=== PATIENT | female | born 1955 | race Caucasian/White ===

== ENCOUNTER → 2017-02-24 | Day surgery (SDC) | payer OTHER ==
[2017-02-19 12:24] VITALS: BMI 45.0
[~2017-02-24] VITALS: Ht 142.2 cm; Wt 92.3 kg
[~2017-02-24] MED LIST: CITA10TA4 PO; CITA20TA4 PO; DLN100 PO; LIDOCAINE HCL 2% 2 ML VIAL (20MG/ML) ONE; NAPR220T PO; PHENOBARBITAL PO; PROPOFOL IV EMULSION 10 MG/ML 20 ML VIAL IV ONE; VNTHFA/IN INH; ZNTT/150 PO
[2017-02-24 09:00] VITALS: TEMP 36.3
[2017-02-24 09:06] VITALS: Ht 142.2 cm; Wt 92.3 kg
--- NOTE | 2017-02-24 10:34 | GI REPORT ---
Procedure Date: 02/24/2017 9:27 AM Procedure: Colonoscopy Indications: High risk colon cancer surveillance: Personal history of colonic polyps Medicines: See the Anesthesia note for documentation of the administered medications Complications: No immediate complications. Estimated Blood Loss: Estimated blood loss: none. Procedure: Pre-Anesthesia Assessment: - ASA Grade Assessment: II - A patient with mild systemic disease. After I obtained informed consent, the scope was passed under direct vision. Throughout the procedure, the patient's blood pressure, pulse, and oxygen saturations were monitored continuously. The scope was introduced through the anus and advanced to the terminal ileum. The colonoscopy was performed without difficulty. The patient tolerated the procedure well. The quality of the bowel preparation was good. Findings: The perianal and digital rectal examinations were normal. Two sessile polyps were found at the hepatic flexure. The polyps were 6 to 7 mm in size. These polyps were removed with a saline injection-lift technique using a hot snare. Resection and retrieval were complete. Two sessile polyps were found at the hepatic flexure. The polyps were 1 to 2 mm in size. These polyps were removed with a cold snare. Resection and retrieval were complete. A 8 mm polyp was found in the transverse colon. The polyp was sessile. The polyp was removed with a saline injection-lift technique using a hot snare. Resection and retrieval were complete. Two sessile polyps were found in the sigmoid colon. The polyps were 3 to 4 mm in size. These polyps were removed with a cold snare. Resection and retrieval were complete. Two sessile polyps were found in the sigmoid colon. The polyps were 4 to 5 mm in size. These polyps were removed with a hot snare. Resection and retrieval were complete. A 8 mm polyp was found in the sigmoid colon. The polyp was sessile. The polyp was removed with a saline injection-lift technique using a hot snare. Resection and retrieval were complete. For hemostasis, one hemostatic clip was successfully placed. Multiple small and large-mouthed diverticula were found in the sigmoid colon and in the descending colon. A 6 mm polyp was found in the descending colon. The polyp was sessile. The polyp was removed with a hot snare. Resection and retrieval were complete. Otherwise normal exam. Impression: - Two 6 to 7 mm polyps at the hepatic flexure, removed using injection-lift and a hot snare. Resected and retrieved. - Two 1 to 2 mm polyps at the hepatic flexure, removed with a cold snare. Resected and retrieved. - One 8 mm polyp in the transverse colon, removed using injection-lift and a hot snare. Resected and retrieved. - Two 3 to 4 mm polyps in the sigmoid colon, removed with a cold snare. Resected and retrieved. - Two 4 to 5 mm polyps in the sigmoid colon, removed with a hot snare. Resected and retrieved. - One 8 mm polyp in the sigmoid colon, removed using injection-lift and a hot snare. Resected and retrieved. Clip was placed. - Diverticulosis in the sigmoid colon and in the descending colon. - One 6 mm polyp in the descending colon, removed with a hot snare. Resected and retrieved. Recommendation: Repeat exam in 1 year. Hold NSAIDs x 1 week. - Discharge patient to home. Jaelyn Farrar M.D. Jaelyn Farrar MD 02/24/2017 10:34:26 AM This report has been signed electronically. Note Initiated On: 02/24/2017 9:27 AM I attest to the content of the Intraoperative Record and orders documented therein, exceptions below
--- NOTE | 2017-02-24 10:35 | Endo History and Physical ---
History & Physical Date of Service: February 24, 2017. Chief Complaint: SCREENING FOR COLON CANCER Referring Physician: DR TRINIDAD History of Present Illness screening CRC Past Surgical History Hx Cardiac Surgery: No Hx Internal Defibrillator: No Hx Pacemaker: No Hx Abdominal Surgery: Yes (TUBAL LIGATION) Hx of Implantable Prosthesis: No Hx Post-Op Nausea and Vomiting: No Hx Cancer Surgery: No Hx Thoracic Surgery: No Hx Orthopedic: Yes (LT TKA) Hx Urinary Tract Surgery: No Family History None Social History Smoking Status: Never Smoker Hx Substance Use: No Hx Alcohol Use: No Allergies Coded Allergies: Diazepam (Verified Adverse Reaction, Unknown, "MADE ME SLEEP ALL THE TIME ", 02/19/17) Current Medications Reported Home Medications Medications Dose Route/Sig Max Daily Dose Days Date Category Dose Instructions Ventolin Hfa (Albuterol) 200 Puffs/25992 Mcg Aers 2-4 Puffs INH Q6H PRN 02/19/17 Reported Aleve (Naproxen Sodium) 220 Mg Tab 220 Mg PO DAILY PRN 02/19/17 Reported Zantac (Ranitidine HCl) 150 Mg Tab 0.5 Tab PO BID 02/19/17 Reported Zantac (Ranitidine HCl) 150 Mg Tab 150 Mg PO HS 02/19/17 Reported Citalopram Hydrobromide 10 Mg Tab 1 Tab PO HS 02/19/17 Reported Citalopram Hydrobromide 20 Mg Tab 0.5 Tab PO BID 02/19/17 Reported [Phenobarbital] 97.2 Mg PO BID 02/19/17 Reported Dilantin (Phenytoin Sodium) 100 Mg Cap 2 Cap PO HS 02/19/17 Reported Dilantin (Phenytoin Sodium) 100 Mg Cap 1 Cap PO BID 02/19/17 Reported MORNING AND AFTERNOON Vital Signs Weight (Kilograms): 92.27 Height (Feet): 4 Height (Inches): 8 Date Time Temp Pulse Resp B/P Pulse Ox O2 Delivery O2 Flow Rate FiO2 02/24/17 10:24 58 18 134/74 100 Room Air 02/24/17 09:00 36.3 61 18 131/58 99 Room Air Physical Exam General Appearance: no apparent distress Respiratory/Chest: Respiratory effort: no dyspnea Auscultation: breath sounds normal Cardiovascular: Heart Auscultation: RRR Abdomen: Inspection & Palpation: soft Assessment and Plan Screening CRC - cscopy
--- NOTE | 2017-02-24 10:36 | Discharge Instructions ---
Endoscopy Patient Instructions Date / Procedure(s) Performed February 24, 2017. Colonoscopy Allergy Information Coded Allergies: Diazepam (Verified Adverse Reaction, Unknown, "MADE ME SLEEP ALL THE TIME ", 02/19/17) Discharge Date / Findings February 24, 2017. Multiple polyps, diverticulosis Medication Instructions Hold all anti- inflammatories x 1 week. Provider Instructions Activity Restrictions - No exercising or heavy lifting for 24 hours. - Do not drink alcohol the day of the procedure. - Do not drive a car or operate machinery until the day after the procedure. - Do not make any important decisions or sign important papers in 24 hours after the procedure. Following Day: - Return to full activity which may include returning to work/school. Diet Start your diet with liquids and light foods (jello, soup, juice, toast). Then eat your usual diet if not nauseated. Treatment For Common After Affects For mild abdominal pain, bloating, or excessive gas: - Rest - Eat lightly - Lie on right side Follow-Up Information Follow-up with DR TRINIDAD as scheduled Anesthesia Information What You Should Know You have had a procedure that required some medicine to reduce anxiety and discomfort. This treatment is called moderate sedation. After receiving the treatment, you may be sleepy, but you will be able to breathe on your own. The effects of the treatment may last for several hours. Follow these instructions along with Activity/Diet recommendations noted above: * Do NOT do anything where dizziness or clumsiness would be dangerous. * Rest quietly at home today, then you can be up and about tomorrow. * Have a responsible person stay with you the rest of today. * You may have had an I.V. today. If so, you may take the dressing off later today. Recommendations Call your doctor if: * Trouble breathing * Continuous vomiting for more than 24 hours * Temperature above 101 degrees * Severe abdominal pain or bloating * Pain not relieved by pain medicine ordered * There is increased drainage or redness from any incision * A large amount of rectal bleeding greater than 2-3 tablespoons. (If you had a polyp/s removed or have hemorrhoids, a small amount of blood - from the rectum is to be expected.) * You have any unanswered questions or concerns. IN THE EVENT OF A SERIOUS EMERGENCY, GO TO THE NEAREST EMERGENCY ROOM Your discharge instructions were prepared by provider Jaelyn Oliveros. Patient Instructions Signature Page Iram Tavarez Patient (or Guardian) Signature/Date: I have read and understand the instructions given to me by my caregivers. Caregiver/RN/Doctor Signature/Date: The above-named patient and/or guardian has received patient instructions on this date. + Original Patient Signature Page (only) stays with chart. Please make copy for patient.
--- NOTE | 2017-02-24 10:42 | Anesthesiology Progress Note ---
Anesthesia Post Op Note Date & Time February 24, 2017 at 10:42 Vital Signs Pain Intensity: 0 Vital Signs Past 12 Hours Date Time Temp Pulse Resp B/P Pulse Ox O2 Delivery O2 Flow Rate FiO2 02/24/17 10:40 73 20 132/74 97 Room Air 02/24/17 10:24 58 18 134/74 100 Room Air 02/24/17 09:00 36.3 61 18 131/58 99 Room Air Notes Mental Status: alert / awake / arousable, participated in evaluation Pt Amnestic to Procedure: Yes Nausea / Vomiting: adequately controlled Pain: adequately controlled Airway Patency, RR, SpO2: stable & adequate BP & HR: stable & adequate Hydration State: stable & adequate Anesthetic Complications: no major complications apparent
[2017-02-24 10:55] VITALS: BP 127/61; PULSE 69; O2SAT 97
== END | disposition home or self-care (01) ==
LOC: C.GI 08:23
PROVIDERS: ATTEND Internal Medicine Gastroenterology
DX: Z12.11 Encounter for screening for malignant neoplasm of colon (principal); D12.3 Benign neoplasm of transverse colon; D12.5 Benign neoplasm of sigmoid colon; D12.2 Benign neoplasm of ascending colon; D12.4 Benign neoplasm of descending colon; K57.30 Diverticulosis of large intestine without perforation or abscess without bleeding; Z86.010 Personal history of colon polyps; Z79.899 Other long term (current) drug therapy

== ENCOUNTER → 2018-02-26 | Day surgery (SDC) | payer OTHER ==
[2018-02-19 10:00] VITALS: Ht 142.2 cm; Wt 95.5 kg
[~2018-02-26] VITALS: Ht 142.2 cm; Wt 95.5 kg
[~2018-02-26] MED LIST changes: -CITA10TA4 PO; -CITA20TA4 PO; +CITA40TA12 PO; +KETO0.0216 OP; +MULT-506 PO; +NAPR-1264 PO; -NAPR220T PO; +NEOM1OIN15; -PROPOFOL IV EMULSION 10 MG/ML 20 ML VIAL IV ONE; +PROPOFOL IV EMULSION 10 MG/ML 20 ML VIAL ONE; +RANI150T85 PO; +SODIUM CHLORIDE 0.9% 500ML 500 ML IV ONE; -ZNTT/150 PO
--- NOTE | 2018-02-26 08:45 | Endo History and Physical ---
History & Physical Date of Service: February 26, 2018. Chief Complaint: ADENOMATOUS POLYPS OF COLON Referring Physician: DR TRINIDAD History of Present Illness Hx of colon polyps Past Surgical History Hx Cardiac Surgery: No Hx Internal Defibrillator: No Hx Pacemaker: No Hx Abdominal Surgery: Yes (TUBAL LIGATION) Hx of Implantable Prosthesis: No Hx Post-Op Nausea and Vomiting: No Hx Cancer Surgery: No Hx Thoracic Surgery: No Hx Orthopedic: Yes (LT TKA) Hx Urinary Tract Surgery: No Social History Smoking Status: Never Smoker Hx Substance Use: No Hx Alcohol Use: No Allergies Coded Allergies: Diazepam (Verified Adverse Reaction, Unknown, "MADE ME SLEEP ALL THE TIME ", 02/26/18) Current Medications Reported Home Medications Medications Dose Route/Sig Max Daily Dose Days Date Category Dose Instructions Zaditor 0.025% Oph (Ketotifen Fumarate (Ophth)) 0.025 % Jorge Alberto 1 Drop OP Q12H PRN 02/19/18 Reported Neosporin Oph (Neomycin/Polymyxin/Bacitracin) Oint DIRECTED 02/19/18 Reported Celexa (Citalopram Hydrobromide) 40 Mg Tab 1 Tab PO HS 30 02/19/18 Reported Multivitamin (Multivitamins) Tab 1 Tab PO DAILY 02/19/18 Reported Ventolin Hfa (Albuterol) 200 Puffs/15192 Mcg Aers 2-4 Puffs INH Q6H PRN 02/19/17 Reported Aleve (Naproxen Sodium) 220 Mg Tab 220 Mg PO DAILY PRN 02/19/17 Reported Zantac (Ranitidine HCl) 150 Mg Tab 1 Tab PO BID 02/19/17 Reported [Phenobarbital] 97.2 Mg PO BID 02/19/17 Reported Dilantin (Phenytoin Sodium) 100 Mg Cap 1 Cap PO TID 02/19/17 Reported MORNING AND AFTERNOON Vital Signs Weight (Kilograms): 95.45 Height (Feet): 4 Height (Inches): 8 Date Time Temp Pulse Resp B/P (MAP) Pulse Ox O2 Delivery O2 Flow Rate FiO2 02/26/18 08:31 36.1 70 16 142/78 (99) 99 Room Air Physical Exam General Appearance: no apparent distress Respiratory/Chest: Auscultation: breath sounds normal Cardiovascular: Heart Auscultation: RRR Abdomen: Inspection & Palpation: soft Assessment and Plan Stable for colonoscopy
--- NOTE | 2018-02-26 10:26 | Discharge Instructions ---
Endoscopy Patient Instructions Date / Procedure(s) Performed February 26, 2018. Colonoscopy Allergy Information Coded Allergies: Diazepam (Verified Adverse Reaction, Unknown, "MADE ME SLEEP ALL THE TIME ", 02/26/18) Discharge Date / Findings February 26, 2018. Polyps and hemorrhoids Provider Instructions Activity Restrictions - No exercising or heavy lifting for 24 hours. - Do not drink alcohol the day of the procedure. - Do not drive a car or operate machinery until the day after the procedure. - Do not make any important decisions or sign important papers in 24 hours after the procedure. Following Day: - Return to full activity which may include returning to work/school. Diet Start your diet with liquids and light foods (jello, soup, juice, toast). Then eat your usual diet if not nauseated. Treatment For Common After Affects For mild abdominal pain, bloating, or excessive gas: - Rest - Eat lightly - Lie on right side Follow-Up Information Follow-up with DR TRINIDAD as scheduled Anesthesia Information What You Should Know You have had a procedure that required some medicine to reduce anxiety and discomfort. This treatment is called moderate sedation. After receiving the treatment, you may be sleepy, but you will be able to breathe on your own. The effects of the treatment may last for several hours. Follow these instructions along with Activity/Diet recommendations noted above: * Do NOT do anything where dizziness or clumsiness would be dangerous. * Rest quietly at home today, then you can be up and about tomorrow. * Have a responsible person stay with you the rest of today. * You may have had an I.V. today. If so, you may take the dressing off later today. Recommendations Call your doctor if: * Trouble breathing * Continuous vomiting for more than 24 hours * Temperature above 101 degrees * Severe abdominal pain or bloating * Pain not relieved by pain medicine ordered * There is increased drainage or redness from any incision * A large amount of rectal bleeding greater than 2-3 tablespoons. (If you had a polyp/s removed or have hemorrhoids, a small amount of blood - from the rectum is to be expected.) * You have any unanswered questions or concerns. IN THE EVENT OF A SERIOUS EMERGENCY, GO TO THE NEAREST EMERGENCY ROOM Your discharge instructions were prepared by provider Zahra Schmitt. Patient Instructions Signature Page Iram Tavarez Patient (or Guardian) Signature/Date: I have read and understand the instructions given to me by my caregivers. Caregiver/RN/Doctor Signature/Date: The above-named patient and/or guardian has received patient instructions on this date. + Original Patient Signature Page (only) stays with chart. Please make copy for patient.
--- NOTE | 2018-02-26 10:30 | GI REPORT ---
Patient Name: Iram Tavarez Procedure Date: 02/26/2018 10:03 AM Date of : 1955 Admit Type: Outpatient Age: 62 Gender: Female Attending MD: Zahra Schmitt MD Procedure: Colonoscopy Providers: Zahra Schmitt MD Referring MD: Mendel Lyn Indications: High risk colon cancer surveillance: Personal history of colonic polyps Medicines: Monitored Anesthesia Care Complications: No immediate complications. Estimated Blood Loss: Estimated blood loss: none. Procedure: Pre-Anesthesia Assessment: - Prior to the procedure, a History and Physical was performed, and patient medications and allergies were reviewed. The patient is competent. The risks and benefits of the procedure and the sedation options and risks were discussed with the patient. All questions were answered and informed consent was obtained. Patient identification and proposed procedure were verified by the physician and the nurse in the procedure room. Mental Status Examination: alert and oriented. Airway Examination: normal oropharyngeal airway and neck mobility. Respiratory Examination: clear to auscultation. CV Examination: normal. ASA Grade Assessment: II - A patient with mild systemic disease. After reviewing the risks and benefits, the patient was deemed in satisfactory condition to undergo the procedure. The anesthesia plan was to use monitored anesthesia care (MAC). Immediately prior to administration of medications, the patient was re-assessed for adequacy to receive sedatives. The heart rate, respiratory rate, oxygen saturations, blood pressure, adequacy of pulmonary ventilation, and response to care were monitored throughout the procedure. The physical status of the patient was re-assessed after the procedure. After I obtained informed consent, the scope was passed under direct vision. Throughout the procedure, the patient's blood pressure, pulse, and oxygen saturations were monitored continuously. The scope was introduced through the anus and advanced to the terminal ileum. The colonoscopy was performed without difficulty. The patient tolerated the procedure well. The quality of the bowel preparation was good. The terminal ileum, ileocecal valve, appendiceal orifice, and rectum were photographed. Findings: The perianal and digital rectal examinations were normal. The terminal ileum appeared normal. Two sessile polyps were found in the cecum. The polyps were 3 mm in size. These polyps were removed with a cold biopsy forceps. Resection and retrieval were complete. Verification of patient identification for the specimen was done by the physician and nurse using the patient's name and date. Non-bleeding internal hemorrhoids were found during retroflexion. The hemorrhoids were small. Impression: - The examined portion of the ileum was normal. - Two 3 mm polyps in the cecum, removed with a cold biopsy forceps. Resected and retrieved. - Non-bleeding internal hemorrhoids. Recommendation: - Discharge patient to home. - Await pathology results. - Repeat colonoscopy in 3 years for surveillance. - Return to referring physician. Zahra Schmitt MD 02/26/2018 10:29:31 AM This report has been signed electronically. Note Initiated On: 02/26/2018 10:03 AM Number of Addenda: 0 I attest to the content of the Intraoperative Record and orders documented therein, exceptions below {[id number]}
--- NOTE | 2018-02-26 10:41 | Anesthesiology Progress Note ---
Anesthesia Post Op Note Date & Time February 26, 2018 at 10:41 Vital Signs Pain Intensity: 2 Vital Signs Past 12 Hours Date Time Temp Pulse Resp B/P (MAP) Pulse Ox O2 Delivery O2 Flow Rate FiO2 02/26/18 10:27 65 16 122/69 (86) 98 Room Air 02/26/18 08:31 36.1 70 16 142/78 (99) 99 Room Air Notes Mental Status: alert / awake / arousable, participated in evaluation Pt Amnestic to Procedure: Yes Nausea / Vomiting: adequately controlled Pain: adequately controlled Airway Patency, RR, SpO2: stable & adequate BP & HR: stable & adequate Hydration State: stable & adequate Anesthetic Complications: no major complications apparent
[2018-02-26 10:57] VITALS: BP 149/72; PULSE 61; O2SAT 100
== END | disposition home or self-care (01) ==
LOC: C.GI 08:06
PROVIDERS: ATTEND Student in an Organized Health Care Education/Training Program
DX: Z12.11 Encounter for screening for malignant neoplasm of colon (principal); Z86.010 Personal history of colon polyps; D12.0 Benign neoplasm of cecum; K64.8 Other hemorrhoids; G40.909 Epilepsy, unspecified, not intractable, without status epilepticus; F41.9 Anxiety disorder, unspecified; F32.9 Major depressive disorder, single episode, unspecified; Z96.652 Presence of left artificial knee joint; Z88.8 Allergy status to other drugs, medicaments and biological substances